=== PATIENT | male | born 1950 | race Asian ===

== ENCOUNTER 2016-10-19 20:41 | Emergency (ER) | payer OTHER ==
[~2016-10-19] VITALS: Ht 177.8 cm; Wt 87.5 kg
[~2016-10-19 20:41] MED LIST: ASPI81TA82 PO; ATOR10 PO; BENI40TA30 PO; CILO50TA PO; LANTUS2P SC; LORTA5 PO; METO25 PO; OMEG100010 PO; SITA100 PO
[2016-10-19 20:45] VITALS: BP 144/80; PULSE 96; RESP 20; TEMP 98.5; O2SAT 96
[2016-10-19] MEDS ORDERED: LISI10TA3 PO (21:13)
[2016-10-19] MEDS ORDERED: SITA1TAB2 PO (21:13)
[2016-10-19] MEDS ORDERED: CILO50TA PO (21:13)
[2016-10-19] MEDS ORDERED: METO25TA3 PO (21:13)
[2016-10-19] MEDS ORDERED: COQ150CA PO (21:13)
[2016-10-19] MEDS ORDERED: OMEGCAP PO (21:13)
[2016-10-19] MEDS ORDERED: LANTUS2P SQ ×2 (21:13)
[2016-10-19] MEDS ORDERED: ATOR10TA15 PO (21:13)
[2016-10-19] MEDS ORDERED: ASPI81CH CHEW (21:13)
--- NOTE | 2016-10-19 21:20 | PD ---
HPI Chief Complaint: Respiratory Symptoms Time Seen by Provider: 21:18 Travel History International Travel<30 days: No Contact w/Intl Traveler<30days: No Traveled to known affect area: No History of Present Illness HPI The patient is a 66-year-old male that for the past 2 days feels chest congestion. He states it was carrying him, like he is drowning. He is not really short of breath. He denies any fever or cough. He is of [place] origin but does not have any history of TB. He denies any nights sweats or weight loss. It is been over 2 years since his last chest x-ray and his , nurse, wants him to get a chest x-ray. He denies any chest pain. He denies any wheezing. PFSH Past Medical History Arthritis: Yes Asthma: No Heart Rhythm Problems: No Cancer: No Cardiovascular Problems: Yes High Cholesterol: Yes Congestive Heart Failure: No COPD: No Diabetes: Yes (DM II) Diminished Hearing: No Endocrine: Yes Genitourinary: No Hypertension: Yes Immune Disorder: No Kidney Stones: No Musculoskeletal: Yes Neurologic: No Psychiatric: No Reproductive: No Respiratory: Yes (pleural effusion) Sleep Apnea: No Past Surgical History Pacemaker: No Social History Alcohol Use: No Tobacco Use: No Substance Use: No Allergies-Medications (Allergen,Severity, Reaction): Coded Allergies: Metformin (Verified Allergy, Intermediate, Diarrhea, 10/19/16) Reported Meds & Prescriptions Reported Meds & Active Scripts Active Reported Coq10 (Coenzyme Q10 (Ubidecarenone)) 50 Mg Cap 200 Mg PO HS [place]-3 Fish Oil/Vitamin (Fish Oil-Cholecalciferol) 1,000-1,000 Mg Cap 1 Cap PO HS Lisinopril 10 Mg Tab 10 Mg PO DAILY Januvia (Sitagliptin Phosphate) 100 Mg Tab 100 Mg PO DAILY Metoprolol Tartrate 25 Mg Tab 25 Mg PO BID Lantus Inj (Insulin Glargine) 1,000 Unit/10 Ml Vial 50 Units SQ HS Lantus Inj (Insulin Glargine) 1,000 Unit/10 Ml Vial 20 Units SQ DAILY Cilostazol 50 Mg Tab 50 Mg PO BID Atorvastatin (Atorvastatin Calcium) 10 Mg Tab 10 Mg PO HS Aspirin 81 Mg Chew 81 Mg CHEW DAILY Review of Systems Except as stated in HPI: all other systems reviewed are Neg Physical Exam Narrative GENERAL: The patient is alert, oriented 3 in no respiratory distress. His vital signs show heart rate of 96 but otherwise normal. SKIN: Focused skin assessment warm/dry. HEAD: Atraumatic. Normocephalic. EYES: Pupils equal and round. No scleral icterus. No injection or drainage. ENT: No nasal bleeding or discharge. Mucous membranes pink and moist. NECK: Trachea midline. No JVD. CARDIOVASCULAR: Regular rate and rhythm. No murmur appreciated. RESPIRATORY: No accessory muscle use. Clear to auscultation. Breath sounds equal bilaterally. GASTROINTESTINAL: Abdomen soft, non-tender, nondistended. Hepatic and splenic margins not palpable. MUSCULOSKELETAL: No obvious deformities. No clubbing. No cyanosis. No edema. NEUROLOGICAL: Awake and alert. No obvious cranial nerve deficits. Motor grossly within normal limits. Normal speech. PSYCHIATRIC: Appropriate mood and affect; insight and judgment normal. Data Data Last Documented VS Vital Signs Date Time Temp Pulse Resp B/P Pulse Ox O2 Delivery O2 Flow Rate FiO2 10/19/16 22:08 Aerosol Mask 10/19/16 21:22 94 10/19/16 21:22 93 18 10/19/16 20:45 98.5 144/80 Orders Chest, Pa & Lat (10/19/16 21:18) Albuterol-Ipratropium Neb (Duoneb Neb) (10/19/16 22:00) MDM Medical Decision Making Medical Screen Exam Complete: Yes Emergency Medical Condition: Yes Medical Record Reviewed: Yes Interpretation(s) The chest x-ray is normal. Differential Diagnosis Anxiety, viral upper respiratory infection, congestive heart failure, pulmonary embolusunlikely, pneumonia, bronchitis, Narrative Course The patient has a viral upper respiratory infection. The chest x-ray is normal I hear nothing in his lungs that is abnormal. He has perceived feeling of drowning but his vital signs are normal. Some of this may be anxiety. Diagnosis Primary Impression: Viral upper respiratory infection Additional Impression: Anxiety Additional Instructions: Follow-up next week with your primary care physician. Continue the breathing treatments at home. Med/Other Pt SpecificInfo: No Change to Meds Disposition: 01 DISCHARGE HOME Condition: Stable Severiano Marion MD October 19, 2016 21:20
[2016-10-19 21:22] VITALS: PULSE 93; RESP 18; O2SAT 94
--- NOTE | 2016-10-19 21:49 | RADHPO ---
EXAM DATE/TIME: 10/19/2016 21:28 [facility] COMPARISON: CHEST PA & LAT, July 10, 2014, 14:22. INDICATIONS : Cough, chest congestion for 4 days MEDICAL HISTORY : Hypertension. Hypercholesterolemia. Chronic obstructive pulmonary disease. SURGICAL HISTORY : None. ENCOUNTER: Initial ACUITY: 4 - 6 days PAIN SCORE: 0/10 LOCATION: Bilateral chest FINDINGS: PA and lateral views of the chest demonstrate the lungs to be symmetrically aerated without evidence of mass, infiltrate or effusion. The cardiomediastinal contours are unremarkable. Osseous structure s are intact. Old right-sided rib fractures. Degenerative changes involving the a.c. joints bilateral ly. CONCLUSION: No acute disease. Pawel Merida Jr., MD on October 19, 2016 at 21:47 Board Certified Radiologist. This report was verified electronically.
[2016-10-19] MEDS: RESP: ALBUTEROL 2.5 MG/IPRATROPIUM 0.5 MG NEB (SCH) INH ×2 (22:04→22:05)
== END 2016-10-19 22:34 | disposition home or self-care (01) ==
LOC: PHED 20:41
DX: J06.9 Acute upper respiratory infection, unspecified (principal); F41.9 Anxiety disorder, unspecified; M19.90 Unspecified osteoarthritis, unspecified site; E78.00 Pure hypercholesterolemia, unspecified; E11.9 Type 2 diabetes mellitus without complications; I10 Essential (primary) hypertension; Z79.82 Long term (current) use of aspirin; Z79.899 Other long term (current) drug therapy; Z79.4 Long term (current) use of insulin
CPT/HCPCS: 71020; 94640; 94664; 99283